=== PATIENT | female | born 1995 | race African-American/Black ===

== ENCOUNTER 2017-04-02 18:28 | Emergency (ER) | payer OTHER ==
[~2017-04-02 18:28] MED LIST: ADVAIR 250-501 EACH INH; ALBUTEROL2.5 MG/3 M INH/SOL; FLEXERIL PO; IBUPROFEN800 MG PO; MONTELUKAST SOD10 M1 PO; PERCOCET 325 MG1 TA2 PO; PREDNISONE 20MG20 MG PO; PRENATAL1 TA2 PO; PROAIR HFA8.5 GM INH; TESSALON PERLE100 MG PO; TRAMADOL HCL50 M1 PO; TRAMADOL50 MG PO; ZITHROMAX250 MG PO
[2017-04-02 18:32] VITALS: BP 136/87
--- NOTE | 2017-04-02 19:58 | ED NECK/BACK PAIN COMPLAINT ---
History of Present Illness General Chief Complaint: General Adult Stated Complaint: "DARRYL BEEN HAVING BACK PAIN" Source: patient Exam Limitations: no limitations Vital Signs & Intake/Output Vital Signs & Intake/Output Vital Signs Date Time Temp Pulse Resp B/P B/P Pulse O2 O2 Flow FiO2 Mean Ox Delivery Rate 04/02 1938 Room Air 04/02 1832 97.8 96 16 136/87 95 Room Air ED Intake and Output 04/03 0000 04/02 1200 Intake Total 0 Output Total Balance 0 Intake, Oral 0 Allergies Coded Allergies: No Known Allergies (01/22/16) Reconcile Medications Albuterol Sulfate 2.5 MG/3 ML VIAL.NEB 1 Vial INH/NOAH Q4P PRN BREATHING PROBLEMS (Reported) Albuterol Sulfate (Proair Hfa) 8.5 GM HFA.AER.AD 2 PUF INH Q4-6 PRN PRN BREATHING PROBLEMS (Reported) Cyclobenzaprine HCl 10 MG TABLET 1 TAB PO QPM PRN muscle strain Fluticasone/Salmeterol (Advair 250-50 Diskus) 1 EACH BLST.W.DEV 1 PUF INH BID BREATHING PROBLEMS (Reported) Triage Note: PT TO ED C/O BACK PAIN. DENIES ANY INJURY. Triage Nurses Notes Reviewed? yes Onset: Abrupt Duration: day(s): Timing: recent history Quality/Severity: moderate, sharpness Location: C-spine Radiation: left arm Method of Injury: unknown Loss of Consciousness: no loss of consciousness Modifying Factors: movement (worsens) : No Patient currently breastfeeds: No HPI: 22-year-old female presents to emergency department complaining of upper back pain since yesterday. Patient states she has had chronic back pain for years however it is intermittent in nature. She has never seen a specialist or had any imaging done for her back pain. She states back pain is sharp located centrally in her upper back, with radiation to left upper arm. She took Motrin at home with only mild relief. She has taken muscle relaxers in the past which has helped her back pain. The patient does not recall any trauma or inciting event over the years that could've started her back pain. She does mention an epidural which she had 3 years ago. She denies numbness, tingling, gait disturbance, urinary incontinence, recent fall, visual changes, ear pain, sore throat. (ILAN PANILTON Mariee) Past History Travel History Traveled to [place] past 21 day No Medical History Any Pertinent Medical History? see below for history Neurological: seizure EENT: NONE Cardiovascular: NONE Respiratory: asthma Gastrointestinal: NONE Hepatic: NONE Renal: NONE Musculoskeletal: NONE Psychiatric: NONE Endocrine: NONE Blood Disorders: NONE Cancer(s): NONE CLOTH MENDER/Reproductive: NONE Surgical History Surgical History: non-contributory Psychosocial History What is your primary language Tajik Tobacco Use: Never used Family History Hx Contributory? No (NILTON TALAVERA PA-C) Review of Systems Review of Systems Constitutional: Reports: no symptoms. Eyes: Reports: no symptoms. Ears, Nose, Throat, Mouth: Reports: no symptoms. Respiratory: Reports: no symptoms. Cardiovascular: Reports: no symptoms. Gastrointestinal/Abdominal: Reports: no symptoms. Musculoskeletal: Reports: see HPI. Skin: Reports: no symptoms. Neurological/Psychological: Reports: see HPI. All Other Systems: Reviewed and Negative (NILTON TALAVERA PA-C) Physical Exam Physical Exam Neck: SEE BELOW Comments: Well-developed well-nourished person in no acute distress HEENT: Normal EENT exam; PERRL, EOMI. HEAD is atraumatic. moist mucous membranes. Neck: Supple, normal range of motion, +tenderness of cervical spine and left paraspinal muscles Back: No thoracic or lumbar vetebral tenderness. Full range of motion Respiratory: No respiratory distress. Patient speaking in full complete sentences. Extremity: No edema, full range of motion of extremities, normal and equal pulses bilaterally, 5 out of 5 strength noted to bilateral upper extremities, tenderness over left shoulder, no deformity Neuro: Alert oriented x3, motor sensory normal, There were no obvious focal neurologic abnormalities. Skin: No appreciable rash on exposed skin, skin is warm and dry. Psych: Mood and affect is normal, memory and judgment is normal. (NILTON TALAVERA PA-C) Progress Differential Diagnosis: C spine injury, cauda equina syn, herniated disc, myofascial strain, spinal cord inj, thoracic outlet syn Plan of Care: Orders Procedure Date/time Status URINE 04/02 1956 Complete Laboratory Tests 04/02/17 2004: Urine Test NEGATIVE Patient has never had imaging to assess for disc problem. Will obtain xray at this time to assess for degeneration of cervical spine. X-ray shows straightening of cervical spine related to muscle spasm. Patient was given prescription for muscle relaxer and instructed to take Motrin over-the -counter 800 mg TID as needed for pain. She will return with any worsening symptoms or concerns. The patient is well-appearing, her vital signs are stable , she is in no distress. Patient is in agreement with the plan of care. Patient is able to ambulate without difficulty exiting the emergency department. (ILAN HOANG,NILTON ALLEN) Diagnostic Imaging: Viewed by Me: Radiology Read. Discussed w/RAD: Radiology Read. Radiology Impression: PATIENT: CONSUELO POWERS PRESENT AGE: 22 PATIENT ACCOUNT NO: [id number] : 96 LOCATION: [facility] ORDERING PHYSICIAN: NILTON TALAVERA PA-C SERVICE DATE: 04/02/17 EXAM TYPE: RAD - XRY-CERV SPINE 4 OR 5 VIEWS EXAMINATION: XR CERVICAL SPINE CLINICAL INFORMATION: Chronic nontraumatic neck pain. EXAMINATION: COMPARISON: None. TECHNIQUE: 4 views. FINDINGS: Cervical: Bone mineral density, vertebral body height, and alignment is maintained without evidence of acute fracture or dislocation. There is a small right seventh cervical rib and a prominent C7 transverse process on the left. Lung apices are clear. There is straightening of the normal cervical lordosis without significant curvature. No focal destructive or sclerotic osseous lesions are seen. Disc and joint space height is maintained without productive or erosive changes. IMPRESSION: Straightening suggesting underlying spasm, otherwise unremarkable cervical spine plain films. DICTATED BY : RENEE FERNÁNDEZ MD DATE/TIME DICTATED:04/02/172138 ROTARY ENGRAVER: GISELL DATE/TIME TRANSCRIBED:04/02/172138 CONFIDENTIAL, DO NOT COPY WITHOUT APPROPRIATE AUTHORIZATION. <Electronically signed in Other Vendor System> SIGNED BY: RENEE FERNÁNDEZ MD 04/02/17 8894 (NILTON TALAVERA PA-C) Departure Departure Disposition: HOME OR SELF CARE Condition: Stable Clinical Impression Primary Impression: Muscle spasm Secondary Impressions: Neck pain Referrals: PATIENT HAS NO PRIMARY CARE DR (PCP/Family) Additional Instructions: Take flexoril as prescribed as needed for muscle strain, this medication may cause drowsiness, do not drive or drink alcohol while taking this medication. Take Motrin 800mg three times a day as needed for musclar pain. Return with worsening symptoms or concerns. Please note that there might be incidental findings in your evaluation that are unrelated to the current emergency department visit. Please notify your primary care doctor about this emergency department visit in order to obtain and review all of the testing performed so that these incidental findings can be monitored as needed. If you had an x-ray performed, please understand that some fractures may not be seen on the initial set of x-rays. If your symptoms persist you might need a repeat set of x-rays to check for such a fracture. If you're unable to follow up as outlined in the discharge instructions please return to the emergency department. Thank you for choosing the [facility] Emergency Department for your care. It was a pleasure to serve you today. Departure Forms: Customer Survey General Discharge Information Prescriptions: Current Visit Scripts Cyclobenzaprine HCl 1 TAB PO QPM PRN muscle strain #8 TAB (ILAN HOANG,NILTON ALLEN) PA/ASSEMBLY LINE SUPERVISOR Co-Sign Statement Statement: ED Attending supervision documentation- I saw and evaluated the patient. I have also reviewed all the pertinent lab results and diagnostic results. I agree with the findings and the plan of care as documented in the PA's/ASSEMBLY LINE SUPERVISOR's documentation. x I have reviewed the ED Record and agree with the PA's/ASSEMBLY LINE SUPERVISOR's documentation. [] Additions or exceptions (if any) to the PAs/ASSEMBLY LINE SUPERVISOR's note and plan are summarized below: [] (KIALEE COPPOLA,KEVIN)
--- NOTE | 2017-04-02 21:45 | RADIOLOGY REPORT ---
EXAMINATION: XR CERVICAL SPINE CLINICAL INFORMATION: Chronic nontraumatic neck pain. EXAMINATION: COMPARISON: None. TECHNIQUE: 4 views. FINDINGS: Cervical: Bone mineral density, vertebral body height, and alignment is maintained without evidence of acute fracture or dislocation. There is a small right seventh cervical rib and a prominent C7 transverse process on the left. Lung apices are clear. There is straightening of the normal cervical lordosis without significant curvature. No focal destructive or sclerotic osseous lesions are seen. Disc and joint space height is maintained without productive or erosive changes. IMPRESSION: Straightening suggesting underlying spasm, otherwise unremarkable cervical spine plain films.
[2017-04-02] MEDS ORDERED: CYCLOBENZAPRINE10 M1 PO (21:49)
== END 2017-04-02 21:59 ==
LOC: ERH 18:28
DX: M62.838 Other muscle spasm (principal)
CPT/HCPCS: 72050; 81025

== ENCOUNTER 2018-01-07 10:09 | Emergency (ER) | payer OTHER ==
[~2018-01-07] VITALS: Ht 152.4 cm; Wt 73.9 kg
[~2018-01-07 10:09] MED LIST changes: +ADVIL MIGRAINE200 M1 PO; +CYCLOBENZAPRINE10 M1 PO; +DELTASONE20 MG PO; +KEFLEX500 M1 PO; +MEDROL4 M2 PO; +PROVENTIL HFA6.7 GM INH; +ZOFRAN ODT4 M1 SL
--- NOTE | 2018-01-07 11:19 | ED GI/GU/ABDOMINAL COMPLAINT ---
History of Present Illness General Chief Complaint: General Adult Stated Complaint: 25 WKS PREG; VOMITING/DIZZINESS Source: patient Exam Limitations: no limitations Vital Signs & Intake/Output Vital Signs & Intake/Output Vital Signs Date Time Temp Pulse Resp B/P B/P Pulse O2 O2 Flow FiO2 Mean Ox Delivery Rate 01/07 1354 98.2 85 17 119/67 99 Room Air 01/07 1250 97.5 89 18 107/51 99 01/07 1012 98.4 114 15 110/71 97 Room Air Room Air Allergies Coded Allergies: No Known Allergies (01/07/18) Reconcile Medications Ondansetron (Zofran Odt) 4 MG TAB.RAPDIS 1 TAB SL TID nausea Ondansetron (Zofran Odt) 4 MG TAB.RAPDIS 1 TAB SL TID PRN nausea Triage Note: PT SENT TO ED BY DR. SPIVEY FOR C/C OF NAUSEA AND VOMITING SINCE YESTERDAY, - DIARRHEA. HAS BEEN TRYING ZOFRAN WITHOUT RELIEF. PT REPORTS SOME TIGHTNESS AROUND ABD, FEELS BABY MOVING NORMAL. . ALSO REPORTS ONE EPISODE OF DIZZINESS YESTERDAY THAT WORSENED THE NAUSEA. Triage Nurses Notes Reviewed? yes ? y Is pt currently ? No Onset: Gradual Duration: day(s): Timing: recent history Quality/Severity: moderate HPI: 22yo female 25 weeks presents to ED complaining of nausea and vomiting beginning yesterday. Patient has had nausea and vomiting throughout her for which she has been prescribed Zofran for. Yesterday and today she has had persistent nausea and vomiting and has not been able to tolerate Zofran. He should also experienced episode of dizziness yesterday, she is unsure if this is related to the 90 degree weather. Dizziness has resolved. Patient reports that she was experiencing abdominal tightness intermittently, currently she has no pain. She is feeling normal movement. Patient had one episode of diarrhea this morning. Patient called her SEAT COVERER, Dr. Spivey, who recommended she reported here to the emergency department for further evaluation. Patient denies change in vaginal discharge, vaginal bleeding, dysuria, fevers, chills, syncope. She had no complications with her first . (Zarina DE JESUS,Kathrine Freeman) Past History Travel History Traveled to [place] past 21 day No Medical History Any Pertinent Medical History? see below for history Neurological: seizure EENT: NONE Cardiovascular: NONE Respiratory: asthma Gastrointestinal: NONE Hepatic: NONE Renal: NONE Musculoskeletal: NONE Psychiatric: NONE Endocrine: NONE Blood Disorders: NONE Cancer(s): NONE PORTER MARINA/Reproductive: NONE Surgical History Surgical History: non-contributory Psychosocial History What is your primary language Polish Tobacco Use: Current Daily Use Daily Tobacco Use Amount/Type: =< 4 Cigarettes daily ETOH Use: denies use Illicit Drug Use: denies illicit drug use Family History Hx Contributory? No (Kathrine Vazquez) Review of Systems Review of Systems Constitutional: Reports: see HPI. EENTM: Reports: no symptoms. Respiratory: Reports: no symptoms. Cardiovascular: Reports: no symptoms. GI: Reports: see HPI. Genitourinary: Reports: no symptoms. Musculoskeletal: Reports: no symptoms. Skin: Reports: no symptoms. Neurological/Psychological: Reports: see HPI. Hematologic/Endocrine: Reports: no symptoms. Immunologic/Allergic: Reports: no symptoms. All Other Systems: Reviewed and Negative (Kathrine Vazquez) Physical Exam Physical Exam General Appearance: well developed/nourished, no apparent distress, alert, awake Head: atraumatic, normal appearance Eyes: Bilateral: normal appearance. Ears, Nose, Throat, Mouth: hearing grossly normal Neck: normal inspection, supple, full range of motion Respiratory: normal breath sounds, no respiratory distress, lungs clear Cardiovascular: regular rate/rhythm Gastrointestinal: normal bowel sounds, soft, non-tender Back: normal inspection, normal range of motion Extremities: normal range of motion Neurologic/Psych: awake, alert, oriented x 3 Skin: intact, normal color, warm/dry Core Measures ACS in differential dx? No Sepsis Present: No Sepsis Focused Exam Completed? No (Kathrine Vazquez) Progress Differential Diagnosis: appendicitis, bowel obstruction, gastritis, electrolyte abnormality, hyperemesis gravidarum Plan of Care: Orders Procedure Date/time Status CULTURE,URINE 01/07 1012 Active URINALYSIS 01/07 1012 Complete HUMAN BETA HCG TITRE 01/07 1012 Complete COMPREHENSIVE METABOLIC PANEL 01/07 1012 Complete CBC WITHOUT DIFFERENTIAL 01/07 1012 Complete ACETONE 01/07 1012 Complete Laboratory Tests 01/07/18 1123: Anion Gap 9, Estimated GFR > 60, BUN/Creatinine Ratio 7.5, Glucose 98, Calcium 9.1, Total Bilirubin 0.5, AST 12 L, ALT 9, Alkaline Phosphatase 58, Total Protein 6.5, Albumin 3.3 L, Globulin 3.2, Albumin/Globulin Ratio 1.0 L, Beta HCG, Quant 8487.8, CBC w Diff NO MAN DIFF REQ, RBC 3.23 L, MCV 101.1 H, MCH 34.4 H, MCHC 34.0, RDW 13.2, MPV 8.2, Gran % 81.1 H, Lymphocytes % 13.7 L, Monocytes % 4.4, Eosinophils % 0.5, Basophils % 0.3, Absolute Granulocytes 10.3 H, Absolute Lymphocytes 1.7, Absolute Monocytes 0.6, Absolute Eosinophils 0.1, Absolute Basophils 0, Acetone Level NEGATIVE, Urinalysis LIGHT H, Urine Color YEL, Urine Clarity HAZY H, Urine pH 7.0, Ur Specific [place] 1.015, Urine Protein NEG, Urine Ketones NEG, Urine Nitrite NEG, Urine Bilirubin NEG, Urine Urobilinogen 0.2, Ur Leukocyte Esterase TRACE H, Ur Microscopic SEDIMENT EXAMINED, Urine WBC 1-3 H, Ur Epithelial Cells FEW, Urine Bacteria FEW H, Urine Mucus FEW, Micro UA Comment MORE INFO: H, Urine Hemoglobin NEG, Urine Glucose NEG Microbiology 01/07 1123 URINE ROUT: Urine Culture - RECD Patient's labs show mild leukocytosis, otherwise within normal limits. Patient' s urine as oval fat bodies present. Patient reports feeling significant improvement following IV fluids and IV Zofran. Spoke with Dr. Spivey - Oval fat bodies may be related to body creams the patient is using. She agrees with plan for discharge with ODT Zofran and follow-up in her office. The patient is nontoxic appearing, no abdominal pain, ambulate without difficulty, vital signs are stable. The patient and her family agree with the plan of care. heart tones normal in 140s. Patient seen and evaluated by Dr. Izaguirre who agrees with our plan. Initial ED EKG: none (Zarina DE JESUS,Kathrine Freeman) Departure Departure Disposition: HOME OR SELF CARE Condition: Stable Clinical Impression Primary Impression: Nausea & vomiting Qualifiers: Vomiting type: unspecified Vomiting Intractability: non-intractable Qualified Code: R11.2 - Nausea with vomiting, unspecified Secondary Impressions: Vomiting affecting Referrals: Patient Has No Primary Care Dr (PCP/Family) Additional Instructions: Begin Zofran dissolvable tablets as prescribed. Increase fluids and foods as tolerated. Follow-up with your SEAT COVERER this week. Return here for any worsening symptoms or concerns. Please note that there might be incidental findings in your evaluation that are unrelated to the current emergency department visit. Please notify your primary care doctor about this emergency department visit in order to obtain and review all of the testing performed so that these incidental findings can be monitored as needed. If you had an x-ray performed, please understand that some fractures may not be seen on the initial set of x-rays. If your symptoms persist you might need a repeat set of x-rays to check for such a fracture. If you had a laceration evaluated, please understand that foreign bodies such as glass or wood may not be visible to the naked eye or on plain x-rays. If the wound becomes red, swollen, increasingly more painful or if there is any drainage from the wound, please have it reevaluated by a physician for the possibility of a retained foreign body. If you're unable to follow up as outlined in the discharge instructions please return to the emergency department. Thank you for choosing the [facility] Emergency Department for your care. It was a pleasure to serve you today. Departure Forms: Customer Survey General Discharge Information Prescriptions: Current Visit Scripts Ondansetron (Zofran Odt) 1 TAB SL TID PRN nausea #10 TAB (Zarina DE JESUS,Kathrine Freeman) PA/MANAGER OF CASE Co-Sign Statement Statement: ED Attending supervision documentation- [X] I saw and evaluated the patient. I have also reviewed all the pertinent lab results and diagnostic results. I agree with the findings and the plan of care as documented in the PA's/MANAGER OF CASE's documentation. [] I have reviewed the ED Record and agree with the PA's/MANAGER OF CASE's documentation. [] Additions or exceptions (if any) to the PAs/MANAGER OF CASE's note and plan are summarized below: [] NO ABD PAIN OR VAGINAL BLEEDING (Johnny Izaguirre DO)
[2018-01-07 11:53] LABS: ABSOLUTE BASOPHIL COUNT 0 /CUMM (0.0-0.2); ABSOLUTE EOSINOPHIL COUNT 0.1 /CUMM (0.0-0.7); ABSOLUTE GRANULOCYTE CT 10.3 /CUMM (1.4-6.5); ABSOLUTE LYMPH COUNT 1.7 /CUMM (1.2-3.4); ABSOLUTE MONOCYTE COUNT 0.6 /CUMM (0.10-0.60); BASOPHIL % 0.3 % (0.0-2.0); EOSINOPHIL % 0.5 % (0-5); GRANULOCYTE % 81.1 % (42.2-75.2); HEMATOCRIT 32.6 % (37-47); MEAN CORPUSCULAR HGB 34.4 PG (27.0-31.0); MEAN CORPUSCULAR VOLUME 101.1 FL (81.0-99.0); MEAN PLATELET VOLUME 8.2 FL (7.4-10.4); PLATELET COUNT 282 /CUMM (130-400); RBC DISTRIBUTION WIDTH 13.2 % (11.5-14.5); RED BLOOD CELL CT 3.23 /CUMM (4.20-5.40); WHITE BLOOD CELL COUNT 12.7 /CUMM (4.8-10.8)
[2018-01-07] MEDS ORDERED: ZOFRAN ODT4 M1 SL (13:18)
[2018-01-07 13:54] VITALS: BP 119/67
== END 2018-01-07 13:56 ==
LOC: ERH 10:09
PROVIDERS: Emergency Medicine
DX: R11.2 Nausea with vomiting, unspecified (principal)
CPT/HCPCS: 81001; 87086; 96360; 96361

== ENCOUNTER 2018-03-04 11:25 | Inpatient (IN) | payer OTHER ==
[~2018-03-04] VITALS: Ht 152.4 cm; Wt 76.7 kg
[2018-03-04 14:58] VITALS: BP 149/75
--- NOTE | 2018-03-04 15:03 | History & Physical Pre-Op ---
General Information and HPI MD Statement: I have seen and personally examined CONSUELO POWERS and documented this H&P. The patient is a 23 year old F who presented with a patient stated chief complaint of []. pain History of Present Illness: 23-year-old 3 para 1011 at 35-1/7 weeks gestation previous history of a section presents today complaining of 2 day history of abdominal pains. Patient has been here possibly 4 hours she's received IV fluid she is received Brethine she is received antibiotics and patient's pains of gotten worse odd they are consistent with abruption or uterine dehiscence patient denies any vaginal bleeding. She has had adequate care she's had negative cultures throughout her . Patient and I have discussed instability for transfer however possible transfer of the fetus if the baby is unstable once delivered patient denies any rupture membranes fever discharge Allergies/Medications Allergies: Coded Allergies: No Known Allergies (01/07/18) Home Med list Ondansetron (Zofran Odt) 4 MG TAB.RAPDIS 1 TAB SL TID nausea Ondansetron (Zofran Odt) 4 MG TAB.RAPDIS 1 TAB SL TID PRN nausea Past History Medical History Neurological: seizure EENT: NONE Cardiovascular: NONE Respiratory: asthma Gastrointestinal: NONE Hepatic: NONE Renal: NONE Musculoskeletal: NONE Psychiatric: NONE Endocrine: NONE Blood Disorders: NONE Cancer(s): NONE PIPE TESTER/Reproductive: NONE Surgical History Pertinent Surgical History: non-contributory Review of Systems Review of Systems: -13 point as stated in the HPI Exam & Diagnostic Data Last 24 Hrs of Vital Signs/I&O Vital Signs Date Time Temp Pulse Resp B/P B/P Pulse O2 O2 Flow FiO2 Mean Ox Delivery Rate 03/04 1458 149/75 Intake & Output 03/04 1600 03/04 0800 03/04 0000 Intake Total Output Total Balance Patient 169 lb Weight Physical Exam: Petite black female no apparent distress HEENT anicteric Abdomen tender throughout the fundus but greater at the Pfannenstiel skin incision Extremities negative edema negative Homans Pelvic is long and closed vertex intact Assessment/Plan Assessment/Plan: Assessment is labor IUP at 35-1/7 weeks gestation previous section with contractions have gotten worse despite IV fluids antibiotics and to the Brethine patient's pain is getting worse consistent with either an abruption or dehiscence of the uterine scar I'm very concerned despite the patient's early gestational age that she is unstable for transfer. Plan section antibiotics culture placenta pediatrics notified As Ranked By This Provider Problem List: 1. Nausea and vomiting during prior to 22 weeks gestation
[2018-03-04 15:21] LABS: ABSOLUTE BASOPHIL COUNT 0 /CUMM (0.0-0.2); ABSOLUTE EOSINOPHIL COUNT 0 /CUMM (0.0-0.7); ABSOLUTE GRANULOCYTE CT 10.1 /CUMM (1.4-6.5); ABSOLUTE LYMPH COUNT 1.6 /CUMM (1.2-3.4); ABSOLUTE MONOCYTE COUNT 0.7 /CUMM (0.10-0.60); BASOPHIL % 0.3 % (0.0-2.0); EOSINOPHIL % 0.2 % (0-5); GRANULOCYTE % 80.9 % (42.2-75.2); HEMATOCRIT 30.9 % (37-47); MEAN CORPUSCULAR HGB 34.7 PG (27.0-31.0); MEAN CORPUSCULAR HGB CONC 34.4 G/DL (33.0-37.0); MEAN PLATELET VOLUME 8.3 FL (7.4-10.4); PLATELET COUNT 259 /CUMM (130-400); RBC DISTRIBUTION WIDTH 13.4 % (11.5-14.5); RED BLOOD CELL CT 3.06 /CUMM (4.20-5.40); WHITE BLOOD CELL COUNT 12.5 /CUMM (4.8-10.8)
[2018-03-04 19:21] LABS: ABSOLUTE BASOPHIL COUNT 0 /CUMM (0.0-0.2); ABSOLUTE EOSINOPHIL COUNT 0 /CUMM (0.0-0.7); ABSOLUTE GRANULOCYTE CT 13.4 /CUMM (1.4-6.5); ABSOLUTE LYMPH COUNT 0.8 /CUMM (1.2-3.4); ABSOLUTE MONOCYTE COUNT 0.2 /CUMM (0.10-0.60); BASOPHIL % 0.1 % (0.0-2.0); EOSINOPHIL % 0.1 % (0-5); GRANULOCYTE % 92.8 % (42.2-75.2); HEMATOCRIT 29.2 % (37-47); MEAN CORPUSCULAR HGB 33.9 PG (27.0-31.0); MEAN CORPUSCULAR HGB CONC 33.8 G/DL (33.0-37.0); MEAN CORPUSCULAR VOLUME 100.4 FL (81.0-99.0); MEAN PLATELET VOLUME 7.8 FL (7.4-10.4); PLATELET COUNT 259 /CUMM (130-400); RED BLOOD CELL CT 2.91 /CUMM (4.20-5.40); WHITE BLOOD CELL COUNT 14.4 /CUMM (4.8-10.8)
--- NOTE | 2018-03-04 19:36 | PN- OBGYN ---
Surgical Brief Attending Note Brief Attending Note: Called to see patient first secondary to uterine atony. This responded to Methergine 0.2 IM x 1. I did note that patient had csection for abruption. Following that at 1840 called secondary to oozing from the wound on the left side. Pressure dressing was applied to area. CBC and coags were obtained. Fundus was firm and no vaginal bleeding noted. Vitals were stable and patient was aox3. Urine was clear at time. Decision made to give TXA and await labs to assess for coagulopathy. At present platelets are 259 and hct of 29 from 34. Will await labs and follow to assess stability of incision. Patient explained of findings and need for this assessment and need for this medication. OR ready in case of need to go into OR for exploration of wound and Anesthesiology Dr Cheng aware. Will hold off any further nsaids at present.
--- NOTE | 2018-03-04 19:46 | PN- OBGYN ---
Surgical Brief Attending Note Brief Attending Note: Wound reinspected and it is bleeding from one location on the left side. As platelets are wnl this in my opinon is retracted vessel and not coagulopathy. Will proceed with repair of wound incision under sedation. I will reconsent for surgical procedure. Patient was counseled on need for repair.
[2018-03-04 19:55] LABS: PT 12.1 SEC (9.4-12.5); PTT 26 SEC (25-37)
--- NOTE | 2018-03-04 20:29 | Operative Report ---
See Addendum Operative/Inv Procedure Report Surgery Date: 03/04/18 Name of Procedure: Wound exploration Pre-Operative Diagnosis: Wound hematoma Post-Operative Diagnosis: Same Estimated Blood Loss: 200 cc at hematoma and 300 cc preprocedure Surgeon/Oil Distributor Tender: Corby Burgos MD, Regina MD Anesthesia: general endotracheal tube Monitors: Per Anesthesiology IV Fluids: 500 cc Urine Output: 50 cc Drains: na Specimens: na Microbiology: na Complications: none Condition: Stable to RR Operative Indication: 23 year old female Para 2 s/p repeat LTCS for abruption at 35 weeks who was found to have active wound bleeding postoperatively. She did not have evidence of DIC and was given TXA however area continued to ooze briskly. Decision made for wound exploration. Consent obtained for same. Operative/Procedure Note Note: Patient taken to OR. Prepped in sterile fashion and given repeat Ancef for SSI risk reduction. GET given. [place] removed and entire incision line with hematomy noted down to fascia. Fascia was intact. Area of active bleeding noted on the left side. Venous in nature. This was coagulated. Hematoma removed. No active bleeding noted. Hui applied to wound area. Restapled area. No nsaids for 24 hours. Lovenox in my opinoin to be held until 24 hours and ALPS only. IV acetaminophen to be used along with ROLL FORMING MACHINE SET UP MECHANIC for pain. Repeat cbc in 4 hours. Findings: Wound hematoma along entire incision of 8-12 and 3-4 cm depth. One area of active bleeding noted (venous) on the left side. Fascia intact. Discharge Disposition: RR in CBC Additional Comments: NA CC: Corby Burgos MD
[2018-03-05 00:13] LABS: ABSOLUTE BASOPHIL COUNT 0 /CUMM (0.0-0.2); ABSOLUTE EOSINOPHIL COUNT 0 /CUMM (0.0-0.7); ABSOLUTE GRANULOCYTE CT 16.7 /CUMM (1.4-6.5); ABSOLUTE LYMPH COUNT 1.1 /CUMM (1.2-3.4); ABSOLUTE MONOCYTE COUNT 0.8 /CUMM (0.10-0.60); BASOPHIL % 0 % (0.0-2.0); EOSINOPHIL % 0 % (0-5); GRANULOCYTE % 89.4 % (42.2-75.2); HEMATOCRIT 25.4 % (37-47); MEAN CORPUSCULAR HGB 34.4 PG (27.0-31.0); MEAN CORPUSCULAR HGB CONC 34.4 G/DL (33.0-37.0); MEAN CORPUSCULAR VOLUME 100.1 FL (81.0-99.0); MEAN PLATELET VOLUME 8.5 FL (7.4-10.4); PLATELET COUNT 264 /CUMM (130-400); RBC DISTRIBUTION WIDTH 13.3 % (11.5-14.5); RED BLOOD CELL CT 2.53 /CUMM (4.20-5.40); WHITE BLOOD CELL COUNT 18.6 /CUMM (4.8-10.8)
[2018-03-05 07:32] LABS: ABSOLUTE BASOPHIL COUNT 0 /CUMM (0.0-0.2); ABSOLUTE EOSINOPHIL COUNT 0 /CUMM (0.0-0.7); ABSOLUTE GRANULOCYTE CT 10.1 /CUMM (1.4-6.5); ABSOLUTE LYMPH COUNT 2.1 /CUMM (1.2-3.4); BASOPHIL % 0.3 % (0.0-2.0); EOSINOPHIL % 0.3 % (0-5); GRANULOCYTE % 76.3 % (42.2-75.2); HEMATOCRIT 22.5 % (37-47); MEAN CORPUSCULAR HGB 34.6 PG (27.0-31.0); MEAN CORPUSCULAR HGB CONC 33.9 G/DL (33.0-37.0); MEAN PLATELET VOLUME 8.6 FL (7.4-10.4); PLATELET COUNT 233 /CUMM (130-400); WHITE BLOOD CELL COUNT 13.2 /CUMM (4.8-10.8)
--- NOTE | 2018-03-05 08:58 | PN- Post Delivery/GYN ---
Subjective Subjective: Reviewed with patient returned to O warmer. Patient feels well tolerating clear liquid diet Objective Last 24 Hrs of Vital Signs/I&O Vital Signs Date Time Temp Pulse Resp B/P B/P Pulse O2 O2 Flow FiO2 Mean Ox Delivery Rate 03/04 1458 149/75 Physical Exam: T black female no apparent distress HEENT anicteric Lungs clear Abdomen soft Fundus firm nontender incision clean dry and intact Lochia minimal Extremities negative edema negative Homans Assessment/Plan Assessment/Plan Assessment is status post repeat section at 35 weeks for abruption was returned to the ora cutaneous hematoma. Anemia Plan check hematocrit supplement with iron increase ambulation and increased diet for possible discharge in a.m. 4 year
[2018-03-05] MEDS ORDERED: IBUPROFEN600 M1 PO (08:59)
[2018-03-05] MEDS ORDERED: PERCOCET 5-3251 EACH PO (08:59)
[2018-03-05 13:07] LABS: ABSOLUTE BASOPHIL COUNT 0 /CUMM (0.0-0.2); ABSOLUTE EOSINOPHIL COUNT 0.1 /CUMM (0.0-0.7); ABSOLUTE GRANULOCYTE CT 8.5 /CUMM (1.4-6.5); ABSOLUTE LYMPH COUNT 3.1 /CUMM (1.2-3.4); ABSOLUTE MONOCYTE COUNT 0.7 /CUMM (0.10-0.60); BASOPHIL % 0.2 % (0.0-2.0); EOSINOPHIL % 0.4 % (0-5); GRANULOCYTE % 68.8 % (42.2-75.2); HEMATOCRIT 23.5 % (37-47); MEAN CORPUSCULAR HGB 34.7 PG (27.0-31.0); MEAN CORPUSCULAR HGB CONC 34.1 G/DL (33.0-37.0); MEAN CORPUSCULAR VOLUME 101.7 FL (81.0-99.0); MEAN PLATELET VOLUME 8.8 FL (7.4-10.4); PLATELET COUNT 278 /CUMM (130-400); RBC DISTRIBUTION WIDTH 13.5 % (11.5-14.5); RED BLOOD CELL CT 2.31 /CUMM (4.20-5.40); WHITE BLOOD CELL COUNT 12.3 /CUMM (4.8-10.8)
[2018-03-05 22:06] LABS: ABSOLUTE BASOPHIL COUNT 0 /CUMM (0.0-0.2); ABSOLUTE EOSINOPHIL COUNT 0 /CUMM (0.0-0.7); ABSOLUTE GRANULOCYTE CT 6.9 /CUMM (1.4-6.5); ABSOLUTE LYMPH COUNT 2.7 /CUMM (1.2-3.4); ABSOLUTE MONOCYTE COUNT 0.6 /CUMM (0.10-0.60); BASOPHIL % 0.3 % (0.0-2.0); EOSINOPHIL % 0.4 % (0-5); GRANULOCYTE % 66.8 % (42.2-75.2); MEAN CORPUSCULAR HGB 34.7 PG (27.0-31.0); MEAN CORPUSCULAR HGB CONC 34.1 G/DL (33.0-37.0); MEAN CORPUSCULAR VOLUME 101.6 FL (81.0-99.0); MEAN PLATELET VOLUME 7.6 FL (7.4-10.4); PLATELET COUNT 259 /CUMM (130-400); RBC DISTRIBUTION WIDTH 13.5 % (11.5-14.5); RED BLOOD CELL CT 2.17 /CUMM (4.20-5.40); WHITE BLOOD CELL COUNT 10.3 /CUMM (4.8-10.8)
[2018-03-06 09:09] LABS: ABSOLUTE BASOPHIL COUNT 0 /CUMM (0.0-0.2); ABSOLUTE EOSINOPHIL COUNT 0.1 /CUMM (0.0-0.7); ABSOLUTE GRANULOCYTE CT 4.4 /CUMM (1.4-6.5); ABSOLUTE LYMPH COUNT 2.6 /CUMM (1.2-3.4); ABSOLUTE MONOCYTE COUNT 0.5 /CUMM (0.10-0.60); BASOPHIL % 0.3 % (0.0-2.0); GRANULOCYTE % 57.4 % (42.2-75.2); HEMATOCRIT 23.1 % (37-47); MEAN CORPUSCULAR HGB 34.3 PG (27.0-31.0); MEAN CORPUSCULAR HGB CONC 33.4 G/DL (33.0-37.0); MEAN CORPUSCULAR VOLUME 102.7 FL (81.0-99.0); MEAN PLATELET VOLUME 8.7 FL (7.4-10.4); PLATELET COUNT 239 /CUMM (130-400); RBC DISTRIBUTION WIDTH 13.6 % (11.5-14.5); RED BLOOD CELL CT 2.25 /CUMM (4.20-5.40); WHITE BLOOD CELL COUNT 7.6 /CUMM (4.8-10.8)
--- NOTE | 2018-03-06 11:29 | PN- Post Delivery/GYN ---
Subjective Subjective: fells well; desires discharge home Review of Systems: pos flatus; incision continues to drain Objective Last 24 Hrs of Vital Signs/I&O vss afebrile; H&H stable Physical Exam: Abd: soft, NT; incision with sersang drainage in midline and on R Ext NT Assessment/Plan Assessment/Plan previous return to OR need to examine and treat for continued bleeding in OR possible discharge later today Problem List: 1. Postoperative bleeding from incision
[2018-03-06 11:30] LABS: PT 10.7 SEC (9.4-12.5); PTT 28 SEC (25-37)
[2018-03-07 08:34] LABS: ABSOLUTE BASOPHIL COUNT 0 /CUMM (0.0-0.2); ABSOLUTE EOSINOPHIL COUNT 0 /CUMM (0.0-0.7); ABSOLUTE GRANULOCYTE CT 6.3 /CUMM (1.4-6.5); ABSOLUTE LYMPH COUNT 2.7 /CUMM (1.2-3.4); ABSOLUTE MONOCYTE COUNT 0.4 /CUMM (0.10-0.60); BASOPHIL % 0.3 % (0.0-2.0); EOSINOPHIL % 0.5 % (0-5); GRANULOCYTE % 66.7 % (42.2-75.2); HEMATOCRIT 21.9 % (37-47); MEAN CORPUSCULAR HGB 34.3 PG (27.0-31.0); MEAN CORPUSCULAR HGB CONC 33.2 G/DL (33.0-37.0); MEAN CORPUSCULAR VOLUME 103.3 FL (81.0-99.0); MEAN PLATELET VOLUME 8.5 FL (7.4-10.4); PLATELET COUNT 286 /CUMM (130-400); RBC DISTRIBUTION WIDTH 13.3 % (11.5-14.5); RED BLOOD CELL CT 2.12 /CUMM (4.20-5.40); WHITE BLOOD CELL COUNT 9.4 /CUMM (4.8-10.8)
--- NOTE | 2018-03-07 11:18 | Operative Report ---
Operative/Inv Procedure Report Surgery Date: 03/06/18 Name of Procedure: wound exploration Pre-Operative Diagnosis: Postoperative bleeding Post-Operative Diagnosis: Same Estimated Blood Loss: less than 50ml Surgeon/Pharmaceutical Officer: Leandro Borjas on Thursday Liliana Anesthesia: general endotracheal tube Operative/Procedure Note Note: The patient was taken to the operating room placed on the OR table in the dorsal supine position. She was given adequate anesthesia and successfully intubated. She was prepped and draped in the usual sterile fashion. Luz Marina were removed from the incision and the incision and opened revealing a moderate amount of clots. The clots are removed and the wound was irrigated with warm normal saline. Careful observation of subcutaneous tissues revealed no active bleeding however there was oozing noted throughout. The subcutaneous tissues were debrided and coagulated were the electrocautery where needed. The subcutaneous tissues were then reapproximated using 3 and it interrupted sutures of 20 plain suture material. The skin was closed using 2-0 silk suture material in a mattress fashion and a dry sterile dressing was applied to the wound the patient was awakened and sent to recovery in good condition. All needle, sponge, and inspected counts were correct at the end of the procedure 2.
== END 2018-03-07 12:25 | DRG 540 ==
LOC: CBCO 11:25 → GNO 14:43 → ENTRNSPT 03-06 14:04 → EDTRNSPTSTS 03-06 14:05 → EDTRNSPT 03-06 14:05 → CMPTRNSPT 03-06 14:33 → GNO 03-07 12:25
PROVIDERS: Obstetrics & Gynecology; Specialist
PROC: 10D00Z1 Extraction of Products of Conception, Low, Open Approach (ICD-10-PCS; principal; 2018-03-04)
PROC: 0W3F0ZZ Control Bleeding in Abdominal Wall, Open Approach (ICD-10-PCS; 2018-03-04)
PROC: 0W3F0ZZ Control Bleeding in Abdominal Wall, Open Approach (ICD-10-PCS; 2018-03-06)
DX: O45.93 Premature separation of placenta, unspecified, third trimester (principal); O34.211 Maternal care for low transverse scar from previous cesarean delivery; N85.8 Other specified noninflammatory disorders of uterus; O90.2 Hematoma of obstetric wound; Z37.0 Single live birth; Z3A.35 35 weeks gestation of pregnancy
CPT/HCPCS: 87070; GNOS; 36415; 80307; 81001; 86920; 87086; 87389; 94799; 96360; 96372; G0463; J0131; J0290; J0690; J1170; J1650; J1885; J2210; J2405; J3105; J3490; J7120

== ENCOUNTER 2018-04-04 11:42 | Emergency (ER) | payer OTHER ==
[~2018-04-04 11:42] MED LIST changes: +IBUPROFEN600 M1 PO; +PERCOCET 5-3251 EACH PO
== END 2018-04-04 12:13 | disposition admitted as inpatient to this hospital (09) ==
LOC: ERH 11:42
DX: R42 Dizziness and giddiness (principal)